=== PATIENT | male | born 1945 | race Caucasian/White ===

== ENCOUNTER 2023-10-29 18:38 | Inpatient (IN) ==
[2023-10-29 20:05] LABS: ABS Lymphocytes 1.4 10^3/uL (1.0-4.8); ABS Monocytes 1.3 10^3/uL (0.0-1.1); ABS Neutrophils 10.1 10^3/uL (1.5-7.6); Eosinophil % 0.1 %; Hematocrit 31.8 % (38-53); Hemoglobin 10.6 g/dL (13.2-16.3); Lymphocyte % 10.7 %; Mean Corpuscular Hemoglobin 33.8 pg (27-33); Mean Corpuscular Hgb Conc 33.3 g/dL (31-36); Mean Corpuscular Volume 101.5 fL (80-97); Mean Platelet Volume 8.3 fL (7.5-11.2); Platelet Count 110 10^3/uL (150-450); Red Blood Count 3.13 10^6/uL (4.06-5.63); Red Cell Distribution Width 13.6 % (12-17); Urine Appearance Clear; Urine Bilirubin Negative (Negative); Urine Blood Negative (Negative); Urine Color Yellow; Urine Glucose Negative (Negative); Urine Ketones 1+ (Negative); Urine Nitrite Negative (Negative); Urine Protein Negative (Negative); Urine Specific Gravity 1.024 (1.002-1.030); Urine Urobilinogen Negative (Negative); White Blood Count 12.8 10^3/uL (3.6-10.2)
[2023-10-29 20:19] LABS: INR 1.36 (0.83-1.13)
[2023-10-29 20:32] LABS: High Sens Troponin Baseline 36 pg/mL (<20)
[2023-10-29 20:52] LABS: ALT 22 U/L (7-52); AST 37 U/L (13-39); Albumin 3.9 g/dL (3.2-5.2); Albumin/Globulin Ratio 1.3 (1-3); Alkaline Phosphatase 91 U/L (35-149); Anion Gap 11 mmol/L (2-16); Blood Urea Nitrogen 46 mg/dL (6-24); CO2 Carbon Dioxide 24 mmol/L (22-32); Calcium 9.7 mg/dL (8.6-10.3); Chloride 107 mmol/L (101-111); Creatinine, Serum 0.92 mg/dL (0.67-1.17); Glucose 132 mg/dL (70-100); Potassium 4.3 mmol/L (3.5-5.0); Sodium 142 mmol/L (135-145); Total Bilirubin 1.2 mg/dL (0.2-1.0); Total Protein 6.9 g/dL (6.4-8.9); eGFR CKD-EPI 85.7 (>60)
[2023-10-29] MEDS: Iohexol 350 (CONTRAST) 500 ML MDV IV ONE (21:39)
[2023-10-29 21:45] LABS: High Sensitivity Troponin 1 Hr 43 pg/mL (<20)
[2023-10-30] MEDS: Lactated Ringers 1000 ml BAG 1,000 ML IV ONE ×2 (02:42→06:41)
[2023-10-30 02:43] LABS: Alcohol, S < 13 mg/dL (<13); Magnesium 1.7 mg/dL (1.9-2.7)
[2023-10-30] MEDS: Magnesium Sulfate 2 gm BAG 2 GM/50 ML BAG IVPB ONE (07:48)
[2023-10-30] MEDS: Ondansetron 4 mg VIAL 2 MG/ML 2 ml VIAL IV ONE (08:31)
[2023-10-30 09:42] LABS: C Reactive Protein 11.59 mg/L (<8.01)
[2023-10-30] MEDS: Multivitamins/Minerals TAB PO SCH (12:43)
[2023-10-30] MEDS: Enoxaparin 40 MG/0.4 ML SYR SUBCUT SCH (12:45)
[2023-10-30] MEDS ORDERED: LORazepam 2 mg VIAL 1 ml IV PUSH SCH (13:00)
[2023-10-30] MEDS: Lactated Ringers 1000 ml BAG 1,000 ML IV SCH (15:52)
[2023-10-30] MEDS ORDERED: Lorazepam PYXIS KEY PRN (16:16)
[2023-10-30] MEDS: cefTRIAXone 1 gm/50 mL D5W 1 GM/50 ML BAG IV SCH (17:51)
[2023-10-30] MEDS: Octreotide Acetate 50 MCG in NS 0.9% 50 ML 50 ML IV ONE (18:14)
[2023-10-30] MEDS: Mometasone/Formoter 100/5 MDI INH SCH (19:13)
[2023-10-30] MEDS: Iohexol 350 (CONTRAST) 500 ML MDV IV ONE (19:20)
[2023-10-30 20:54] LABS: Hematocrit 21.6 % (38-53); Hemoglobin 6.9 g/dL (13.2-16.3)
[2023-10-30] MEDS: Octreotide Acetate 500 MCG in NS 0.9% 100 ml BAG 100 ML IV SCH (21:01)
[2023-10-31] MEDS: Pantoprazole 80 mg in NS BAG 80 MG/250 ML BAG IV SCH ×2 (00:22→23:43)
[2023-10-31] MEDS: Lactated Ringers 1000 ml BAG 1,000 ML IV SCH (00:39)
[2023-10-31 01:35] LABS: ABS Basophils 0.1 10^3/uL (0.0-0.1); ABS Lymphocytes 1.5 10^3/uL (1.0-4.8); ABS Monocytes 1.2 10^3/uL (0.0-1.1); ABS Neutrophils 9.8 10^3/uL (1.5-7.6); ABS Nucleated RBC 0.01 10^3/ul; Eosinophil % 0.1 %; Hematocrit 19.3 % (38-53); Hemoglobin 6.4 g/dL (13.2-16.3); Lymphocyte % 11.6 %; Mean Corpuscular Hemoglobin 34.6 pg (27-33); Mean Corpuscular Hgb Conc 33.3 g/dL (31-36); Mean Corpuscular Volume 103.9 fL (80-97); Mean Platelet Volume 8.4 fL (7.5-11.2); Platelet Count 94 10^3/uL (150-450); Red Blood Count 1.86 10^6/uL (4.06-5.63); Red Cell Distribution Width 14.4 % (12-17); White Blood Count 12.8 10^3/uL (3.6-10.2)
[2023-10-31 03:33] LABS: Urine Appearance Clear; Urine Bilirubin Negative (Negative); Urine Blood Negative (Negative); Urine Color Yellow; Urine Glucose Negative (Negative); Urine Ketones Negative (Negative); Urine Nitrite Negative (Negative); Urine Protein Negative (Negative); Urine Urobilinogen Negative (Negative)
[2023-10-31 09:49] LABS: Hematocrit 25.1 % (38-53); Hemoglobin 8.5 g/dL (13.2-16.3); Mean Corpuscular Hemoglobin 33.1 pg (27-33); Mean Corpuscular Hgb Conc 33.9 g/dL (31-36); Mean Corpuscular Volume 97.7 fL (80-97); Red Blood Count 2.57 10^6/uL (4.06-5.63); Red Cell Distribution Width 17.7 % (12-17); White Blood Count 12.7 10^3/uL (3.6-10.2)
[2023-10-31 10:25] LABS: Mean Platelet Volume 8.6 fL (7.5-11.2); Platelet Count 89 10^3/uL (150-450)
[2023-10-31] MEDS ORDERED: Midazolam 10 mg/10 ml VIAL 1 mg/ml 10 ml VIAL (10 mg) ONE (10:30)
[2023-10-31] MEDS ORDERED: fentaNYL 100 mcg/2 ml 50 MCG/ML VIAL ONE (10:31)
[2023-10-31 11:06] LABS: Calcium 8.1 mg/dL (8.6-10.3); Creatinine, Serum 1.08 mg/dL (0.67-1.17); Potassium 4.1 mmol/L (3.5-5.0); eGFR CKD-EPI 70.7 (>60)
[2023-10-31 15:36] LABS: Hematocrit 26.7 % (38-53); Hemoglobin 8.7 g/dL (13.2-16.3)
[2023-10-31] MEDS: Octreotide Acetate 500 MCG in NS 0.9% 100 ml BAG 100 ML IV SCH (21:18)
[2023-11-01 08:02] LABS: Hematocrit 23.8 % (38-53); Hemoglobin 8.1 g/dL (13.2-16.3); Mean Corpuscular Hemoglobin 33.8 pg (27-33); Mean Corpuscular Hgb Conc 33.9 g/dL (31-36); Mean Corpuscular Volume 99.6 fL (80-97); Mean Platelet Volume 8.3 fL (7.5-11.2); Platelet Count 74 10^3/uL (150-450); Red Blood Count 2.39 10^6/uL (4.06-5.63); Red Cell Distribution Width 17.8 % (12-17); White Blood Count 12.5 10^3/uL (3.6-10.2)
[2023-11-01] MEDS: Pantoprazole 80 mg in NS BAG 80 MG/250 ML BAG IV SCH (11:43)
[2023-11-01 17:36] LABS: Hematocrit 26.4 % (38-53); Hemoglobin 8.7 g/dL (13.2-16.3)
[2023-11-01 22:46] LABS: Anaplasma phagocytophilum Negative (Negative); B. miyamotoi PCR, B Negative (Negative); Babesia divergens/MO-1 Negative (Negative); Babesia ducani Negative (Negative); Ehrlichia chaffeensis Negative (Negative); Ehrlichia ewingii/canis Negative (Negative); Ehrlichia muris eauclairensis Negative (Negative)
[2023-11-02 06:52] LABS: Calcium 7.8 mg/dL (8.6-10.3); Creatinine, Serum 0.83 mg/dL (0.67-1.17); Potassium 3.7 mmol/L (3.5-5.0); eGFR CKD-EPI 90.1 (>60)
[2023-11-02 07:24] LABS: ABS Basophils 0.1 10^3/uL (0.0-0.1); ABS Eosinophils 0.2 10^3/uL (0.0-0.5); ABS Lymphocytes 1.6 10^3/uL (1.0-4.8); ABS Neutrophils 5.7 10^3/uL (1.5-7.6); ABS Nucleated RBC 0.02 10^3/ul; Eosinophil % 2.2 %; Hematocrit 22.8 % (38-53); Hemoglobin 7.8 g/dL (13.2-16.3); Lymphocyte % 19.1 %; Mean Corpuscular Hemoglobin 33.9 pg (27-33); Mean Corpuscular Hgb Conc 33.9 g/dL (31-36); Mean Corpuscular Volume 99.9 fL (80-97); Mean Platelet Volume 8.7 fL (7.5-11.2); Nucleated Red Blood Cells % 0.2 %/100WBC (0.0-0.8); Platelet Count 77 10^3/uL (150-450); Red Blood Count 2.29 10^6/uL (4.06-5.63); Red Cell Distribution Width 17.1 % (12-17); White Blood Count 8.6 10^3/uL (3.6-10.2)
[2023-11-02 15:02] LABS: IgG Immunoblot Negative (Negative); IgM Immunoblot Negative (Negative)
[2023-11-02 17:33] LABS: Hematocrit 24.5 % (38-53); Hemoglobin 8.3 g/dL (13.2-16.3)
[2023-11-03 06:32] LABS: Calcium 8.1 mg/dL (8.6-10.3); Creatinine, Serum 0.79 mg/dL (0.67-1.17); Potassium 4.2 mmol/L (3.5-5.0); eGFR CKD-EPI 91.5 (>60)
[2023-11-03 07:03] LABS: Hematocrit 25.8 % (38-53); Hemoglobin 8.9 g/dL (13.2-16.3); Mean Corpuscular Hgb Conc 34.3 g/dL (31-36); Mean Corpuscular Volume 101.9 fL (80-97); Mean Platelet Volume 8.2 fL (7.5-11.2); Platelet Count 81 10^3/uL (150-450); Red Blood Count 2.53 10^6/uL (4.06-5.63); Red Cell Distribution Width 17.6 % (12-17); White Blood Count 10.4 10^3/uL (3.6-10.2)
[2023-11-03 10:21] VITALS: BP 141/70
== END 2023-11-03 12:40 | disposition home or self-care (01) | DRG 377 ==
LOC: EDHOLD 18:38 → ED 18:38 → SUATTDRO 10-30 12:12 → MED 10-30 14:36
PROVIDERS: ADMIT Internal Medicine; ATTEND Student in an Organized Health Care Education/Training Program

== ENCOUNTER 2024-01-01 12:31 | Observation (INO) ==
[2024-01-01] MEDS: Acetaminophen IV 1 GM/100ML 1,000 MG/100 ML BAG IV ONE (14:09)
[2024-01-01 14:14] LABS: ABS Basophils 0.1 10^3/uL (0.0-0.1); ABS Eosinophils 0.1 10^3/uL (0.0-0.5); ABS Lymphocytes 1.6 10^3/uL (1.0-4.8); ABS Neutrophils 10.1 10^3/uL (1.5-7.6); ABS Nucleated RBC 0.02 10^3/ul; Eosinophil % 0.5 %; Hematocrit 35.6 % (38-53); Hemoglobin 11.3 g/dL (13.2-16.3); Lymphocyte % 12.6 %; Mean Corpuscular Hemoglobin 28.9 pg (27-33); Mean Corpuscular Hgb Conc 31.8 g/dL (31-36); Mean Corpuscular Volume 91.1 fL (80-97); Mean Platelet Volume 7.3 fL (7.5-11.2); Nucleated Red Blood Cells % 0.1 %/100WBC (0.0-0.8); Platelet Count 135 10^3/uL (150-450); Red Blood Count 3.91 10^6/uL (4.06-5.63); Red Cell Distribution Width 16.1 % (12-17); White Blood Count 12.9 10^3/uL (3.6-10.2)
[2024-01-01 14:26] LABS: INR 1.27 (0.85-1.14)
[2024-01-01 15:08] LABS: Albumin 3.9 g/dL (3.2-5.2); Albumin/Globulin Ratio 1.2 (1-3); Calcium 8.9 mg/dL (8.6-10.3); Creatinine, Serum 0.95 mg/dL (0.67-1.17); Globulin 3.2 g/dL (2-4); Magnesium 1.9 mg/dL (1.9-2.7); Potassium 4.7 mmol/L (3.5-5.0); Total Bilirubin 0.4 mg/dL (0.2-1.0); Total Protein 7.1 g/dL (6.4-8.9); eGFR CKD-EPI 82.4 (>60)
[2024-01-01 15:17] LABS: TSH Ultra Thyroid Stim Horm 1.06 mcIU/mL (0.34-5.60)
[2024-01-01 16:04] LABS: High Sensitivity Troponin 1 Hr 9 pg/mL (<20)
[2024-01-01 20:14] LABS: Urine Appearance Clear; Urine Bilirubin Negative (Negative); Urine Blood Negative (Negative); Urine Color Yellow; Urine Glucose Negative (Negative); Urine Ketones 1+ (Negative); Urine Nitrite Negative (Negative); Urine Protein Negative (Negative); Urine Specific Gravity 1.025 (1.002-1.030); Urine Urobilinogen Negative (Negative); Urine pH 6.5 (5.0-8.0)
[2024-01-02] MEDS: Morphine 4 MG/ML VIAL (1 ml) IV ONE (02:14)
[2024-01-02] MEDS ORDERED: Acetaminophen IV 1 GM/100ML 1,000 MG/100 ML BAG IV PRN (03:13)
[2024-01-02] MEDS: Labetalol IV 5 MG/ML 20 ml VIAL IV PUSH ONE (03:54)
[2024-01-02] MEDS: Enoxaparin 40 MG/0.4 ML SYR SUBCUT SCH (05:33)
[2024-01-02 05:48] LABS: ABS Basophils 0.1 10^3/uL (0.0-0.1); ABS Eosinophils 0.1 10^3/uL (0.0-0.5); ABS Lymphocytes 1.5 10^3/uL (1.0-4.8); ABS Monocytes 0.9 10^3/uL (0.0-1.1); ABS Neutrophils 6.3 10^3/uL (1.5-7.6); Eosinophil % 1.3 %; Hematocrit 32.7 % (38-53); Hemoglobin 10.9 g/dL (13.2-16.3); Mean Corpuscular Hemoglobin 30.2 pg (27-33); Mean Corpuscular Hgb Conc 33.2 g/dL (31-36); Mean Corpuscular Volume 90.8 fL (80-97); Mean Platelet Volume 7.4 fL (7.5-11.2); Platelet Count 111 10^3/uL (150-450); Red Blood Count 3.61 10^6/uL (4.06-5.63); Red Cell Distribution Width 16.6 % (12-17); White Blood Count 8.9 10^3/uL (3.6-10.2)
[2024-01-02 06:23] LABS: Alcohol, S < 13 mg/dL (<13); Anion Gap 6 mmol/L (2-16); Blood Urea Nitrogen 14 mg/dL (6-24); CO2 Carbon Dioxide 26 mmol/L (22-32); Calcium 8.8 mg/dL (8.6-10.3); Chloride 105 mmol/L (101-111); Creatinine, Serum 0.76 mg/dL (0.67-1.17); Glucose 108 mg/dL (70-100); Magnesium 2.2 mg/dL (1.9-2.7); Potassium 4.2 mmol/L (3.5-5.0); Sodium 137 mmol/L (135-145); eGFR CKD-EPI 92.6 (>60)
[2024-01-02] MEDS: Multivitamins/Minerals TAB PO SCH (08:15)
[2024-01-02] MEDS ORDERED: Lidocaine PATCH 5% PATCH TRANSDERM SCH (10:00)
[2024-01-02 13:14] VITALS: BP 124/70
== END 2024-01-02 12:47 | disposition home or self-care (01) ==
LOC: EDHOLD 12:31 → ED 12:31 → SUATTDRO 01-02 02:45 → EDHOLD 01-02 13:13
PROVIDERS: ADMIT Hospitalist; ATTEND Internal Medicine

== ENCOUNTER 2024-02-18 09:33 | Observation (INO) ==
[~2024-02-18 09:33] MED LIST: Lidocaine 1% w EPI 1:100,000 MDV 20 ML VIAL ONE; Metoclopramide 5 MG/ML VIAL (10 mg) IV PRN; NS 0.45% 1000 ml BAG 1,000 ML IV SCH; Naloxone 0.4 mg VIAL 0.4 mg/ml 1 ml VIAL IV PRN; Ondansetron 4 mg VIAL 2 MG/ML 2 ml VIAL IV PRN; Thrombin 5,000 UNITS 1 APPLIC KIT - topical use - TOPICAL ONE; ceFAZolin VIAL VIAL ONE
[2024-02-18] MEDS ORDERED: Thrombin 5,000 UNITS(BOVINE) for Ultrasound Guided Pseudoaneursym ONE (10:03)
[2024-02-18] MEDS ORDERED: Lidocaine 1% w EPI 1:100,000 MDV 20 ML VIAL ONE (10:03)
[2024-02-18] MEDS ORDERED: ceFAZolin VIAL VIAL ONE (10:03)
[2024-02-18] MEDS ORDERED: Propofol 10 MG/ML 20 ML BTL ONE (10:15)
[2024-02-18] MEDS ORDERED: Lidocaine 2% PF 5 ML VIAL ONE (10:15)
[2024-02-18] MEDS ORDERED: ceFAZolin 2 GM PREMIX 2 GM/50 ML BAG ONE (10:15)
[2024-02-18] MEDS ORDERED: Rocuronium 50 mg VIAL 10 mg/ml 5 ml VIAL (50 mg) ONE (10:15)
[2024-02-18] MEDS ORDERED: Dexamethasone IV 4 MG/ML VIAL 1 ml VIAL ONE (10:22)
[2024-02-18] MEDS ORDERED: Ondansetron 4 mg VIAL 2 MG/ML 2 ml VIAL ONE (10:23)
[2024-02-18] MEDS ORDERED: fentaNYL 100 mcg/2 ml 50 MCG/ML VIAL ONE ×2 (10:23→14:47)
[2024-02-18] MEDS ORDERED: Chlorhexidine MOUTHWASH 0.12% 15 ML UDC ONE (10:34)
[2024-02-18 10:39] LABS: Rapid COVID-19 Molecular Undetected (Undetected)
[2024-02-18] MEDS ORDERED: Phenylephrine 40 mcg/mL 10mL (400mcg) SYRINGE ONE (12:46)
[2024-02-18] MEDS ORDERED: HYDROmorphone 0.5 MG/0.5 ML SYRINGE ONE (13:25)
[2024-02-18] MEDS: Buffered Lidocaine 1% SYRIN 1 ml INTRADERM ONE (13:46)
[2024-02-18] MEDS: Acetaminophen IV 1 GM/100ML 1,000 MG/100 ML BAG IV ONE (13:46)
[2024-02-18] MEDS: Lactated Ringers 1000 ml BAG 1,000 ML IV SCH ×2 (13:47→15:35)
[2024-02-18] MEDS: Scopolamine 1 mg/72hr PATCH TRANSDERM ONE (13:47)
[2024-02-18] MEDS ORDERED: Morphine 2 MG/ML SYRINGE IV PRN (13:51)
[2024-02-18] MEDS ORDERED: Phenol 1.4% Throat Spray BTL MT PRN (13:51)
[2024-02-18] MEDS ORDERED: Ondansetron 4 mg VIAL 2 MG/ML 2 ml VIAL IV PRN (13:51)
[2024-02-18] MEDS ORDERED: Benzocaine/Menthol LOZ MT PRN (13:51)
[2024-02-18] MEDS ORDERED: Dextran 70/Hypromellose Tears Eye Drops 15 ml BTL (for Artificials Tears) BOTH EYES PRN (13:51)
[2024-02-18] MEDS ORDERED: Senna TAB 8.6 mg TAB PO PRN (13:51)
[2024-02-18] MEDS ORDERED: Calcium Carb (TUMS) 500 mg CHEW TAB PO PRN (13:51)
[2024-02-18] MEDS: fentaNYL 100 mcg/2 ml 50 MCG/ML VIAL IV PRN (14:48)
[2024-02-19] MEDS: Influenza Vaccine *TRI* 2024-25* 0.5 ML SYRINGE IM ONE (09:40)
[2024-02-20 08:24] VITALS: BP 156/78
== END 2024-02-20 13:40 | disposition home or self-care (01) ==
LOC: OR 09:33 → SSU 09:33
PROVIDERS: ADMIT Neurological Surgery; ATTEND Neurological Surgery